=== PATIENT | female | born 1995 | race Caucasian/White ===

== ENCOUNTER 2023-12-13 06:58 | Emergency (ER) | payer BC ==
[2023-12-13 07:04] VITALS: TEMP 98.5; BMI 22.0
[2023-12-13 08:40] LABS: EPI CELLS 15 /uL (0-25.1); HCG,QUALITATIVE URINE Negative; HYALINE CASTS 1 /uL (0-3.1); PH,URINE 5.5 (5.0-8.0); URINE APPEARANCE CLOUDY; URINE BACTERIA >9,000 /uL (0-1359); URINE BILIRUBIN NEGATIVE (NEGATIVE); URINE COLOR YELLOW; URINE GLUCOSE (UA) NEGATIVE (NEGATIVE); URINE KETONE NEGATIVE (NEGATIVE); URINE LEUK ESTERASE 1+ (NEGATIVE); URINE NITRITE POSITIVE (NEGATIVE); URINE PROTEIN NEGATIVE (NEGATIVE); URINE RBC 225 /uL (0-23.9); URINE UROBILINOGEN 0.2 mg/dL (0.2-1.0); URINE WBC 156 /uL (0-25.8)
[2023-12-13] MEDS ORDERED: ACETAMINOPHEN 325 MG TABLET (FP) ONE (11:10)
[2023-12-13] MEDS ORDERED: CEPHALEXIN MONOHYDRATE 500 MG CAPSULE (UD) ONE (11:11)
[2023-12-13] MEDS ORDERED: FLUCONAZOLE 150 MG TABLET PO ONE (11:11)
[2023-12-13 11:14] LABS: HIV INTERPRETATION NEGATIVE (NEGATIVE)
[2023-12-13 11:16] LABS: SYPHILIS W/ RPR CONF NON-REACTIVE (NONREACTIVE)
[2023-12-13] MEDS: ACETAMINOPHEN 500 MG TABLET (FP) PO ONE (11:16)
[2023-12-13] MEDS: FLUCONAZOLE 150 MG TABLET PO ONE (11:16)
[2023-12-13] MEDS: CEPHALEXIN MONOHYDRATE 500 MG CAPSULE (UD) PO ONE (11:16)
[2023-12-13 11:44] VITALS: BP 112/76; PULSE 78; RESP 16
== END 2023-12-13 12:12 | disposition home or self-care (01) ==
LOC: JER 06:58
DX: N39.0 Urinary tract infection, site not specified (principal); N76.0 Acute vaginitis; B96.89 Other specified bacterial agents as the cause of diseases classified elsewhere; R10.30 Lower abdominal pain, unspecified; R30.0 Dysuria; R31.9 Hematuria, unspecified
CPT/HCPCS: 36415; 76830-TC; 81003; 84703; 86780; 86803; 87086; 87186; 87389; 87491; 87591; 87661; 99283-25

== ENCOUNTER 2024-10-26 13:32 | Day surgery (SDC) | payer BC ==
[2024-10-26 14:02] VITALS: BMI 23.6
[2024-10-26 14:53] LABS: URINE APPEARANCE Cloudy; URINE BILIRUBIN Negative (NEGATIVE); URINE COLOR Dark yellow; URINE GLUCOSE (UA) Negative (NEGATIVE); URINE KETONE Trace (NEGATIVE); URINE LEUK ESTERASE Negative (NEGATIVE); URINE NITRITE Negative (NEGATIVE); URINE PROTEIN 2+ (NEGATIVE); URINE UROBILINOGEN 0.2 mg/dL (0.2-1.0)
[2024-10-26 14:55] LABS: HCG,QUALITATIVE URINE Positive
[2024-10-26] MEDS ORDERED: ACETAMINOPHEN 325 MG TABLET (FP) ONE (15:15)
[2024-10-26 15:26] LABS: ABSOLUTE IMMATURE GRANULOCYTES 0.02 x10^3/uL (0.0-0.031); BASOPHILS # 0.02 x10^3/uL (0.01-0.08); EOSINOPHIL % 0.3 % (0.7-5.8); EOSINOPHILS # 0.02 x10^3/uL (0.04-0.36); HEMATOCRIT 37.8 % (34.1-44.9); HEMOGLOBIN 12.8 g/dL (11.2-15.7); MCHC 33.9 g/dl (32.2-35.5); MEAN CELL VOLUME 85.3 fl (79.4-94.8); MONOCYTE # 0.45 x10^3/uL (0.24-0.86); MONOCYTE % 7.1 % (4.7-12.5); PLATELET COUNT 210 x10^3/uL (182-369); RDW 12.4 % (12.1-16.5)
[2024-10-26] MEDS: ACETAMINOPHEN 325 MG TABLET (FP) PO ONE (15:38)
[2024-10-26 15:49] LABS: POTASSIUM 3.8 mmol/L (3.5-5.1)
[2024-10-26 15:52] LABS: BLOOD UREA NITROGEN 12.5 mg/dL (7-18); CALCIUM 9.3 mg/dL (8.5-10.1)
[2024-10-26 15:55] LABS: CREATININE 0.8 mg/dL (0.55-1.3)
[2024-10-26 15:57] LABS: BILIRUBIN,TOTAL 0.6 mg/dL (0.2-1); TOT PROT 7.2 g/dl (6.4-8.2)
[2024-10-26] MEDS ORDERED: ONDANSETRON *ODT* 4 MG TABLET ONE (16:58)
[2024-10-26] MEDS: ONDANSETRON *ODT* 4 MG TABLET SL ONE (17:09)
[2024-10-26 17:15] LABS: HCV DIAGNOSTIC IN-HOUSE W/RFLX NON-REACTIVE (NONREACTIVE)
[2024-10-26 17:16] LABS: HIV INTERPRETATION NEGATIVE (NEGATIVE)
[2024-10-26] MEDS ORDERED: FENTANYL CITRATE/PF 50 MCG/ML VIAL ONE (18:46)
[2024-10-26] MEDS: LACTATED RINGERS SOLUTION 1000 ML INFUS.BAG IV ONE (18:53)
[2024-10-26 19:03] LABS: INR 1.13 (0.83-1.09); PROTHROMBIN TIME (PATIENT) 12.3 SEC (9.7-13.0)
[2024-10-26 19:06] LABS: ACTIVATED PTT 37.6 SECONDS (25.2-36.5)
[2024-10-26] MEDS ORDERED: PROPOFOL 40 ML ONE (19:38)
[2024-10-26] MEDS ORDERED: ROCURONIUM BROMIDE 50 MG/5 ML SYRINGE ONE (19:38)
[2024-10-26] MEDS ORDERED: SUCCINYLCHOLINE CHLORIDE 200 MG/10 ML SYRINGE ONE (19:39)
[2024-10-26] MEDS ORDERED: MIDAZOLAM HCL 2 MG/2 ML SINGLE DOSE VIAL ONE (19:39)
[2024-10-26] MEDS: ceFAZolin SODIUM 1 GM VIAL IVPB ONE (19:53)
[2024-10-26] MEDS: LIDOCAINE HCL 1%, 10 MG/ML (50 mL VIAL) INF ONE (20:15)
[2024-10-26] MEDS ORDERED: SUGAMMADEX SODIUM 200 MG/2 ML VIAL ONE (20:26)
[2024-10-26] MEDS: LACTATED RINGERS SOLUTION 1,000 ML IV SCH (21:36)
[2024-10-26] MEDS ORDERED: oxyCODONE HCL 5 MG TABLET PO PRN (21:47)
[2024-10-26] MEDS ORDERED: ONDANSETRON 4 MG/2 ML VIAL IVPUSH PRN (21:47)
[2024-10-26] MEDS ORDERED: ELECTROLYTE-148 SOLN 1,000 ML IV SCH (22:00)
[2024-10-26 22:25] VITALS: RESP 18
[2024-10-27] MEDS: IBUPROFEN 800 MG/8 ML IJ IVPB PRN (00:04)
[2024-10-27 06:54] LABS: HEMATOCRIT 34.6 % (34.1-44.9); HEMOGLOBIN 11.6 g/dL (11.2-15.7); MCHC 33.5 g/dl (32.2-35.5); MEAN CELL VOLUME 85.6 fl (79.4-94.8); MEAN PLT VOLUME 9.4 fl (9.4-12.3); PLATELET COUNT 195 x10^3/uL (182-369); RDW 12.2 % (12.1-16.5)
[2024-10-27 09:40] VITALS: BP 107/71; PULSE 78; TEMP 98.2
[2024-10-27] MEDS: IBUPROFEN 600 MG TABLET (FP) PO PRN (11:08)
== END 2024-10-27 13:25 | disposition home or self-care (01) ==
LOC: JER 13:32 → JERBED 17:24 → UNDOADMIN 17:24 → J3W 21:47 → JASUSAT 21:47 → J3W 22:00 → JERBED 22:00 → JASUSAT 10-27 13:25
PROVIDERS: ATTEND Obstetrics & Gynecology
PROC: 0UB54ZZ Excision of Right Fallopian Tube, Percutaneous Endoscopic Approach (ICD-10-PCS; principal; 2024-10-26 18:49)
DX: O00.101 Right tubal pregnancy without intrauterine pregnancy (principal); K66.1 Hemoperitoneum
CPT/HCPCS: 0241U-QW; 36415; 76817-TC; 80053; 81003; 84702; 84703; 85025; 85027; 85610; 85730; 86803; 86850; 86900; 86901; 87086; 87389; 93005; 93010; 94760; 99291; Q0162